=== PATIENT | female | born 1985 | race American Indian/Alaskan Native ===

== ENCOUNTER 2016-08-26 01:12 | Inpatient (IN) | payer MEDICAID ==
--- NOTE | 2016-08-26 01:29 | OBHP ---
Datetime: 08/26/2016 01:26 IP Adm Impression: Term, intrauterine ; Active labor; Ruptured Membranes IP Admit Plan: Admit to unit; Initiate labor protocol Pelvic Type - PN: Adequate Extremities - PN: Normal Abdomen - PN: Normal Back - PN: Normal Breast - PN: Not Done Lungs - PN: Normal Heart - PN: Normal Thyroid - PN: Not Done Neurologic - PN: Not Done HEENT - PN: Not Done General - PN: Normal Weight - Estimated: 3600 Presentation-Admit: Vertex FHR - Baseline A Provider: 140 Membranes, Provider: Ruptured Contraction Comments Provider: Q 3min. Gestation - Est Wks by US: 39.0 Vital Signs Provider: Reviewed; Within Normal Limits IP Chief Complaint: Uterine contractions; Suspected ruptured membranes NICHD Variability Prov Fetus A: Moderate 6-25bpm FHR Category Provider Fetus A: Category I NICHD Decel Fetus A IP Provider: None Dilatation, Provider: 3 Effacement, Provider: 80 Station, Provider: -2 Genitourinary Exam: Normal DTRs - PN: Normal
[2016-08-26 01:34] VITALS: BMI 27.3
[2016-08-26] MEDS ORDERED: Penicillin G 5 Million Unit Vial IVPB ONE ×2 (01:34→02:26)
[2016-08-26] MEDS ORDERED: Lactated Ringer's 1,000 ML IV SCH (01:45)
[2016-08-26] MEDS ORDERED: Nalbuphine 20 mg/ml Inj (1 ml) IVP PRN (01:45)
--- NOTE | 2016-08-26 01:47 | OBADHP ---
Datetime: 08/26/2016 01:26 IP Chief Complaint Other: Para1 at 39 weeks Gestation with limited care presents complainin g of painful uterine contractions and LOF. No vaginal bleeding. States good movement. Admit Comment, IP Provider: Active Labor. Reassuring status. Anticipate . Pelvic Type - PN: Adequate Extremities - PN: Normal Abdomen - PN: Normal Back - PN: Normal Breast - PN: Not Done Lungs - PN: Normal Heart - PN: Normal Thyroid - PN: Not Done Neurologic - PN: Not Done HEENT - PN: Not Done General - PN: Normal Weight - Estimated: 3600 Presentation-Admit: Vertex FHR - Baseline A Provider: 140 Membranes, Provider: Ruptured Contraction Comments Provider: Q 3min. Gestation - Est Wks by US: 39.0 IP Hx Assessment: The History has been Reviewed and is Current Vital Signs Provider: Reviewed; Within Normal Limits IP Chief Complaint: Uterine contractions; Suspected ruptured membranes NICHD Variability Prov Fetus A: Moderate 6-25bpm FHR Category Provider Fetus A: Category I NICHD Decel Fetus A IP Provider: None Dilatation, Provider: 3 Effacement, Provider: 80 Station, Provider: -2 Genitourinary Exam: Normal DTRs - PN: Normal IP Adm Impression: Term, intrauterine ; Active labor; Ruptured Membranes IP Admit Plan: Admit to unit; Initiate labor protocol
[2016-08-26 02:41] LABS: BASO % 0.2 % (0.0-2.0); EOS % 0.5 % (0.0-4.0); MEAN CELL VOLUME 75.5 fL (81.0-99.0); MEAN CORPUSCULAR HGB CONC 33.1 g/dL (33.0-37.0); MEAN PLATELET VOLUME 9.5 fL (7.2-11.7); MONO # 0.6 K/uL (0.0-0.8); MONO % 7.5 % (0.0-10.0); NRBC % 0.1 % (0.0-2.0); RED CELL DISTRIBUTION WIDTH 16.4 % (11.5-14.5); WHITE BLOOD COUNT 8.5 K/uL (4.8-10.8)
[2016-08-26 02:49] LABS: RBC URINE 31 /hpf (0-3); URINE BACTERIA FEW (<OCC); URINE BILIRUBIN NEGATIVE (NEGATIVE); URINE BLOOD 2+ (NEGATIVE); URINE COLOR Yellow (YELLOW); URINE GLUCOSE (UA) NORMAL (Normal); URINE KETONE NEGATIVE (NEGATIVE); URINE LEUKOCYTE ESTERASE NEG Leu/uL (Negative); URINE PROTEIN 1+ mg/dL (NEGATIVE); URINE UROBILINOGEN NORMAL mg/dL (0.2-1.0); WBC URINE 4 /hpf (0-5)
[2016-08-26] MEDS ORDERED: Nalbuphine 20 mg/ml Inj (1 ml) ONE (02:49)
--- NOTE | 2016-08-26 03:12 | OBPN ---
Datetime: 08/26/2016 03:08 IP Progress Impression: Normal progression of labor; Reassuring heart rate IP Informed Consent Obtain: Vaginal Delivery; Risks, Benefits and Alternatives Discussed IP Procedures: Artificial ROM; Sterile Vag Exam IP Progress Plan: Continue present management; Anticipate Vaginal Delivery Membranes, Provider: Ruptured Amniotic Fluid Color, Provider: Meconium, Light Contraction Comments Provider: Q 2min. FHR - Baseline A Provider: 130 Gestation - Est Wks by US: 39.0 Weight - Estimated: 3600 Presentation-Admit: Vertex IP Progress Note Comment: Active Labor. Reassuring Status. Anticipate . FHR Category Provider Fetus A: Category I NICHD Variability Prov Fetus A: Moderate 6-25bpm Dilatation, Provider: 5 Effacement, Provider: 80 Station, Provider: -2 NICHD Decel Fetus A IP Provider: None Datetime: 08/26/2016 01:26 Vital Signs Provider: Reviewed; Within Normal Limits
[2016-08-26 04:19] LABS: GFR AFRICAN-AMERICAN > 60; GLUCOSE,RANDOM 85 mg/dL (65-105)
[2016-08-26] MEDS ORDERED: Oxytocin 20 units in LR 2,000 ML IV ONE (04:21)
[2016-08-26] MEDS ORDERED: Lidocaine 2% Inj (20ml) ONE (04:23)
--- NOTE | 2016-08-26 05:02 | OBDS ---
DELIVERY PERSONNEL Delivery Doctor: Zandra Monroy MD Scrub Nurse: Kortney Camp OBT Body Make Up Artist: Sanjeev Francoangélica RN MATERNAL INFORMATION Delivery Anesthesia: Local Medications in Delivery: none Estimated Blood Loss (ml): 250 Placenta Cultured: No Maternal Complications: None Provider Comments: TO A VIABLE GIRL, 'S 9/9. LABOR SUMMARY EDC: 08/31/2016 00:00 No. Babies in Womb: 1 Attempted: No Labor Anesthesia: IV Sedation LABOR INFORMATION Reason for Induction: Not Applicable Onset of Labor: 08/25/2016 23:40 Complete Dilatation: 08/26/2016 04:00 Oxytocin: N/A Group B Beta Strep: Done, Result Unknown Antibiotics # of Doses: 1 Antibiotics Time of Last Dose: 2:15 Steroids Given: None Reason Steroids Not Administered: Not Applicable Other Reason Not Administered: term baby MEMBRANES Membranes Rupture Method: Spontaneous Rupture of Membranes: 08/26/2016 00:30 Length of Rupture (hrs): 3.77 Amniotic Fluid Color: Clear Amniotic Fluid Amount: Small Amniotic Fluid Odor: Normal STAGES OF LABOR Stage 1 hrs: 4 Stage 1 min: 20 Stage 2 hrs: 0 Stage 2 min: 16 Stage 3 hrs: 0 Stage 3 min: 3 Total Time in Labor hrs: 4 Total Time in Labor min: 39 VAGINAL DELIVERY Episiotomy: None Laceration Extension: Second Degree Laceration Type: Perineal Laceration Repair: Yes Laceration Repair Note: Second degree perineal laceration repaired with 2-0 Chromic Catgut. Initial Vag Sponge Count: 10+1 Final Vag Sponge Count: 10+1 Initial Vag Sharps Count: 1 Final Vag Sharps Count: 1 Sponge Count Correct: Yes; Vaginal Sweep Performed Sharps Count Correct: Yes Count Comment: all accounted for BABY A INFORMATION Infant Delivery Date/Time: 08/26/2016 04:16 Method of Delivery: Vaginal Born in Route : No : N/A Forceps: N/A Vacuum Extraction: N/A Shoulder Dystocia : No SHOULDER DYSTOCIA BABY A Infant Delivery Date/Time: 08/26/2016 04:16 PRESENTATION/POSITION BABY A Presentation: Cephalic Cephalic Presentation: Vertex Vertex Position: Left Occipital Anterior Breech Presentation: N/A PLACENTA INFORMATION BABY A Placenta Delivery Time : 08/26/2016 04:19 Placenta Method of Delivery: Spontaneous Placenta Status: Delivered SCORES BABY A Heart Rate 1 min: >100 bpm Resp Effort 1 min: Good Cry Reflex Irritability 1 min: Cough or Sneeze or Pulls Away Muscle Tone 1 min: Active Motion Color 1 min: Body [place], Extremities Blue Resuscitation Effort 1 min: N/A SCORE 1 MIN: 9 Heart Rate 5 min: >100 bpm Resp Effort 5 min: Good Cry Reflex Irritability 5 min: Cough or Sneeze or Pulls Away Muscle Tone 5 min: Active Motion Color 5 min: Body [place], Extremities Blue Resuscitation Effort 5 min: N/A SCORE 5 MIN: 9 INFANT INFORMATION BABY A Gestational Age at Delivery: 39.2 Gestational Status: Term Infant Outcome : Liveborn Condition : Stable Sex: Female IDENTIFICATION/MEDS BABY A ID Band Number: [id number] ID Band Location: Left Leg; Left Arm Sensor Applied: Yes Sensor Number: [id number] Sensor Location : Cord Clamp Vitamin K Given : Not Given Erythromycin Given: Not Given WEIGHT/LENGTH BABY A Birthweight (gms): 3695 Weight (lb): 8 Weight (oz): 2 Length Inches: 19.00 Infant Length cms: 48.3 CORD INFORMATION BABY A No. Cord Vessels: 3 Nuchal Cord : Around Neck x1, Loose Infant Suction: Mouth; Nose ASSESSMENT BABY A Infant Complications: Meconium Physical Findings at Delivery: Within Normal Limits Infant Respirations: Appears Normal Cns/ALS Called : Yes Infant Care By: Dr COX Transferred To: Remains with Mother
[2016-08-26] MEDS ORDERED: Benzocaine/Menthol 20%-0.5% Topical Spray (60 ml) TOP PRN (05:12)
[2016-08-26] MEDS: Multiple Vitamins Tab PO SCH (10:21)
[2016-08-27 09:20] LABS: HEMATOCRIT 32.9 % (34.0-47.0)
[2016-08-27] MEDS: Multiple Vitamins Tab PO SCH (09:44)
[2016-08-27 10:48] VITALS: O2SAT 100
--- NOTE | 2016-08-27 14:45 | OBPPN ---
Datetime: 08/27/2016 14:25 PP Pain Prov: Within normal limits PP Nausea Prov: Denies PP Flatus Prov: Yes PP Breasts Prov: Normal PP Heart Prov: Normal PP Lungs Prov: Normal PP Abdomen/Uterus Prov: Normal PP Lochia Prov: Normal PP Vulva/Perineum Prov: Normal PP CVA Tenderness Prov: Normal PP Extremities Prov: Normal PP C/S Incision Prov: Not Applicable PP Progress Prov: Normal PP Impression Prov: Normal progression PP Plan Prov: Continue present management Vital Signs Provider PP: Reviewed; Within Normal Limits Dr Signature: JAY
[2016-08-28] MEDS: Multiple Vitamins Tab PO SCH (09:03)
[2016-08-28 09:08] VITALS: BP 121/82; PULSE 76; RESP 18; TEMP 97
--- NOTE | 2016-09-04 20:39 | OBPPN ---
Datetime: 08/28/2016 08:47 PP Pain Prov: Within normal limits PP Nausea Prov: Denies PP Flatus Prov: Yes PP Heart Prov: Normal PP Lungs Prov: Normal PP Abdomen/Uterus Prov: Normal PP Lochia Prov: Normal PP Vulva/Perineum Prov: Normal PP CVA Tenderness Prov: Normal PP Extremities Prov: Normal PP C/S Incision Prov: Not Applicable PP Progress Prov: Normal PP Impression Prov: Normal progression PP Plan Prov: Discharge PP Progress Note Prov: S-patient states that her pain is well controlled.she is tolerating regular d iet.ambulating and voiding without difficulty.passing faltus O-VSS afebrile Fundus firm and below umbilicus Extremities no calf tenderness A/P Patient s/p vaginal delivery ppd 2 doing well -discharge today -follow up in clinic in 6 weeks Vital Signs Provider PP: Reviewed; Within Normal Limits
== END 2016-08-28 12:50 | disposition home or self-care (01) | DRG 373 ==
LOC: C.EROB 01:12 → C.4D 01:32 → UNDOADMIN 01:32 → C.4D 01:35 → C.4M 09:20
PROVIDERS: ADMIT Obstetrics & Gynecology; ATTEND Obstetrics & Gynecology
PROC: 10E0XZZ Delivery of Products of Conception, External Approach (ICD-10-PCS; principal; 2016-08-26)
PROC: 0KQM0ZZ Repair Perineum Muscle, Open Approach (ICD-10-PCS; 2016-08-26)
DX: O69.81X0 Labor and delivery complicated by cord around neck, without compression, not applicable or unspecified (principal); O70.1 Second degree perineal laceration during delivery; Z37.0 Single live birth; Z3A.39 39 weeks gestation of pregnancy